=== PATIENT | female | born 1990 | race African-American/Black ===

== ENCOUNTER 2024-01-02 05:50 | Day surgery (SDC) | payer OTHER ==
[~2024-01-02] VITALS: Ht 154.9 cm; Wt 55.3 kg
[2024-01-02] MEDS ORDERED: SIMETHICONE 40 MG/0.6 ML ML ONE (06:18)
[2024-01-02] MEDS ORDERED: MEPERIDINE HCL/PF 25 MG/ML DISP.SYRIN ONE (06:18)
[2024-01-02] MEDS ORDERED: MIDAZOLAM HCL 5 MG/5 ML VIAL ONE (06:19)
[2024-01-02 07:38] LABS: SERUM HCG (QUALITATIVE) NEGATIVE (NEGATIVE)
[2024-01-02 07:44] VITALS: O2SAT 100
[2024-01-02] MEDS ORDERED: MEPERIDINE 100 MG INJ. 100 MG/ML VIAL ONE (08:02)
[2024-01-02 19:23] VITALS: BP_SYST 100; PULSE 79; RESP 9
== END 2024-01-02 09:44 | disposition home or self-care (01) ==
LOC: SDS 05:50
PROVIDERS: ATTEND Internal Medicine
DX: K62.5 Hemorrhage of anus and rectum (principal); K62.89 Other specified diseases of anus and rectum; K60.2 Anal fissure, unspecified; K64.0 First degree hemorrhoids; G35 Multiple sclerosis
CPT/HCPCS: 45380; 99152; 84703; 36415; 88305; 99153; G0378; J2250; J2175 ×2